=== PATIENT | male | born 1950 | race Caucasian/White ===

== ENCOUNTER 2021-12-21 09:38 | Outpatient (CLI) | payer MEDICARE | END 2021-12-21 09:39 | disposition home or self-care (01) | LOC: CSHLAB 09:38 | PROVIDERS: ATTEND Internal Medicine Gastroenterology | DX: Z20.822 Contact with and (suspected) exposure to COVID-19 (principal); Z12.11 Encounter for screening for malignant neoplasm of colon | CPT/HCPCS: 87811 ==

== ENCOUNTER 2021-12-24 05:51 | Day surgery (SDC) | payer MEDICARE ==
[2021-12-22 13:40] VITALS: BMI 33.7
[2021-12-24] MEDS ORDERED: Lidocaine 1% PF 5 ML VIAL ONE (07:17)
[2021-12-24] MEDS ORDERED: PROPOFOL 40 ML ONE (07:17)
== END 2021-12-24 08:46 | disposition home or self-care (01) ==
LOC: CSHSDC 05:51
PROVIDERS: ATTEND Internal Medicine Gastroenterology
PROC: 0DBM8ZZ Excision of Descending Colon, Via Natural or Artificial Opening Endoscopic (ICD-10-PCS; principal; 2021-12-24)
PROC: 0DBN8ZZ Excision of Sigmoid Colon, Via Natural or Artificial Opening Endoscopic (ICD-10-PCS; 2021-12-24)
DX: Z12.11 Encounter for screening for malignant neoplasm of colon (principal); D12.4 Benign neoplasm of descending colon; K51.40 Inflammatory polyps of colon without complications; K64.9 Unspecified hemorrhoids; I10 Essential (primary) hypertension; E11.9 Type 2 diabetes mellitus without complications; E78.5 Hyperlipidemia, unspecified; Z86.010 Personal history of colon polyps; Z88.8 Allergy status to other drugs, medicaments and biological substances
CPT/HCPCS: 36416; 88305; J2704